=== PATIENT | female | born 2000 | race American Indian/Alaskan Native ===

== ENCOUNTER 2023-02-11 15:10 | Emergency (ER) | payer MEDICAID ==
[~2023-02-11] VITALS: Ht 167.6 cm; Wt 54.4 kg
[2023-02-11] MEDS ORDERED: VENTAER INH (16:41)
[2023-02-11] MEDS ORDERED: OSEL75CA PO (16:41)
[2023-02-11 17:15] VITALS: BP 126/66; TEMP 99.2; O2SAT 98
== END 2023-02-11 17:19 | disposition home or self-care (01) ==
LOC: M ED 15:10
DX: J10.1 Influenza due to other identified influenza virus with other respiratory manifestations (principal); Z79.52 Long term (current) use of systemic steroids; Z79.83 Long term (current) use of bisphosphonates

== ENCOUNTER 2023-12-21 09:20 | Emergency (ER) | payer MEDICAID, OTHER ==
[~2023-12-21] VITALS: Ht 167.6 cm; Wt 55.6 kg
[~2023-12-21 09:20] MED LIST: OSEL75CA PO; VENTAER INH
[2023-12-21 12:44] VITALS: BP 121/74; TEMP 97.5; O2SAT 100
[2023-12-21] MEDS: LIDOCAINE W/EPINEPHRINE 1% 20ML VIAL SC ONE (12:59)
[2023-12-21] MEDS ORDERED: DOXY-441 PO (13:18)
== END 2023-12-21 13:32 | disposition home or self-care (01) ==
LOC: M ED 09:20
DX: L02.213 Cutaneous abscess of chest wall (principal); Z79.51 Long term (current) use of inhaled steroids; Z79.2 Long term (current) use of antibiotics

== ENCOUNTER → 2025-01-06 | Outpatient (CLI) | payer OTHER ==
[~2025-01-06] MED LIST changes: +DOXY-441 PO
[2025-01-06 15:20] LABS: MONO SCRN NEGATIVE (NEGATIVE)
== END ==
LOC: M LAB 13:44
PROVIDERS: ATTEND Student in an Organized Health Care Education/Training Program
DX: J31.2 Chronic pharyngitis (principal)

== ENCOUNTER → 2025-01-12 | Outpatient (REF) | payer OTHER ==
[2025-01-12 19:05] LABS: BASO # 0.1 10^3/uL (0.0-0.2); BASO % 1.0 % (0.0-1.0); EOS # 0.1 10^3/uL (0.0-0.5); EOS % 1.5 % (0.0-3.0); LYMPH # 1.9 10^3/uL (1.5-5.0); LYMPH % 39.5 % (24.0-44.0); MONO # 0.5 10^3/uL (0.0-0.8); MONO % 10.0 % (2.0-8.0); NEUTROPHILS # 2.3 10^3/uL (1.5-8.5); NEUTROPHILS % 47.8 % (36.0-66.0); PLATELET COUNT, AUTOMATED 254 10^3/uL (150-450)
[2025-01-12 19:12] LABS: ALT/SGPT 12 U/L (7.0-40); AST/SGOT 13 U/L (<34); CALCIUM LEVEL 9.4 MG/DL (8.5-10.1); CARBON DIOXIDE LEVEL 30 MMOL/L (20-31); CHLORIDE LEVEL 105 MMOL/L (98-107); CREATININE FOR GFR 0.77 MG/DL (0.55-1.30); GLOMERULAR FILTRATION RATE > 90.0 (>60); IRON (FE) 63 UG/DL (50-170); POTASSIUM SERUM 4.5 MMOL/L (3.5-5.1); SODIUM LEVEL 142 MMOL/L (136-145)
[2025-01-12 19:13] LABS: PERCENT SATURATION 15.6 % (13.2-45.0)
[2025-01-12 19:15] LABS: FREE T4 1.01 NG/DL (0.89-1.76)
== END ==
LOC: M LAB REF 16:23
PROVIDERS: ATTEND Student in an Organized Health Care Education/Training Program
DX: J31.2 Chronic pharyngitis (principal); Z86.2 Personal history of diseases of the blood and blood-forming organs and certain disorders involving the immune mechanism; Z86.39 Personal history of other endocrine, nutritional and metabolic disease

== ENCOUNTER → 2025-02-06 | Outpatient (CLI) | payer OTHER | LOC: M EKG 11:05 | PROVIDERS: ATTEND Student in an Organized Health Care Education/Training Program | DX: R07.9 Chest pain, unspecified (principal); I45.19 Other right bundle-branch block; R94.31 Abnormal electrocardiogram [ECG] [EKG] ==

== ENCOUNTER → 2025-02-13 | Outpatient (CLI) | payer OTHER | LOC: M EKG 08:55 | PROVIDERS: ATTEND Student in an Organized Health Care Education/Training Program | DX: R07.9 Chest pain, unspecified (principal); Z53.9 Procedure and treatment not carried out, unspecified reason ==